=== PATIENT | male | born 1975 | race Caucasian/White ===

== ENCOUNTER 2020-04-26 14:13 | Emergency (ER) | payer SELFPAY ==
[~2020-04-26] VITALS: Ht 172.7 cm; Wt 81.6 kg
[2020-04-26 14:13] VITALS: BP 123/75
--- NOTE | 2020-04-26 14:37 | NUR ---
Patient discharged to home in stable condition. Written and verbal after care instructions given. Patient verbalizes understanding of instruction.
== END 2020-04-26 14:42 | disposition home or self-care (01) ==
LOC: ER 14:19
DX: T82.524A Displacement of infusion catheter, initial encounter (principal)